=== PATIENT | male | born 1985 | race Two or more races ===

== ENCOUNTER 2019-09-22 20:01 | Emergency (ER) | payer OTHER ==
[~2019-09-22] VITALS: Ht 175.3 cm; Wt 88.5 kg
[2019-09-22] MEDS ORDERED: KETOROLAC TROMETH 60MG/2ML VIAL IM ONE (22:30)
[2019-09-22] MEDS ORDERED: methylPREDNISolone SOD SUCC 125 MG/2 ML VL IM ONE (22:30)
[2019-09-22 22:46] VITALS: BP 147/81
== END 2019-09-22 23:17 | disposition home or self-care (01) ==
LOC: ER 20:02
DX: M48.061 Spinal stenosis, lumbar region without neurogenic claudication (principal); M62.830 Muscle spasm of back
CPT/HCPCS: 72131; 96372; 99284; J1885; J2930